=== PATIENT | male | born 1965 | race American Indian/Alaskan Native ===

== ENCOUNTER 2017-09-29 00:57 | Emergency (ER) | payer OTHER, MEDICAID ==
[2017-09-29 01:07] VITALS: BP 135/89
[2017-09-29] MEDS ORDERED: MOTRIN PO ONE (03:37)
[2017-09-29] MEDS ORDERED: MOTRIN ONE (03:38)
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
== END 2017-09-29 06:30 | disposition home or self-care (01) ==
LOC: ED 00:57
DX: S39.012A Strain of muscle, fascia and tendon of lower back, initial encounter (principal); S46.811A Strain of other muscles, fascia and tendons at shoulder and upper arm level, right arm, initial encounter; S46.812A Strain of other muscles, fascia and tendons at shoulder and upper arm level, left arm, initial encounter; J45.909 Unspecified asthma, uncomplicated; F43.10 Post-traumatic stress disorder, unspecified; F17.200 Nicotine dependence, unspecified, uncomplicated; V89.2XXA Person injured in unspecified motor-vehicle accident, traffic, initial encounter; Y93.89 Activity, other specified; Y92.89 Other specified places as the place of occurrence of the external cause; Y99.8 Other external cause status
CPT/HCPCS: 99282

== ENCOUNTER 2021-03-08 09:36 | Outpatient (CLI) | payer MEDICAID ==
--- NOTE | 2021-03-08 13:24 | Ultrasound Report ---
ULTRASOUND THYROID INDICATION / CLINICAL INFORMATION: CYSTIC THYROID NODULE. COMPARISON: None available. FINDINGS: RIGHT LOBE: Size (cm) = 7.9 x 2.6 x 3.5 cm. LEFT LOBE: Size (cm) = 5.8 x 2.0 x 1.6 cm. ISTHMUS: Thickness (cm) = 0.2 cm. APPEARANCE: Multinodular. SMALL NODULES < 1 cm: None. NODULES >= 1 cm or SUSPICIOUS FEATURES (up to 4): - NODULE # 1 - Location: Right Lower - Maximum Size (cm): 4.3 cm - Significant Change (>= 20% in 2 dim. & inc. >= 2mm): No prior study - Composition: Mixed cystic & solid = 1 point - Echogenicity: Hypoechoic = 2 points - Shape: [id number] = 0 points - Margin: Smooth = 0 points - Echogenic Foci: None = 0 points - Additional Echogenic Foci: None = 0 points - Additional Findings: None. - ACR TI-RADS Score / Category = 3 points / TI-RADS 3 - NODULE # 2 - Location: Right Mid - Maximum Size (cm): 1.2 cm - Significant Change (>= 20% in 2 dim. & inc. >= 2mm): No prior study - Composition: Solid = 2 points - Echogenicity: Hyperechoic or Isoechoic = 1 point - Shape: [id number]-[id number] = 0 points - Margin: Ill-defined = 0 points - Echogenic Foci: None = 0 points - Additional Echogenic Foci: None = 0 points - Additional Findings: None. - ACR TI-RADS Score / Category = 3 points / TI-RADS 3 - NODULE # 3 - Location: Left mid pole nodule is not well characterized. This lesion is difficult to evaluate wi thout cine imaging. It could be a spongiform nodule or a hypoechoic, solid nodule. The echogenic ole ons could be related to acoustic enhancement of the cystic orta. - NODULE # 4 - Location: Left lower - Maximum Size (cm): 1.6 cm - Significant Change (>= 20% in 2 dim. & inc. >= 2mm): No prior study - Composition: Solid = 2 points - Echogenicity: Hyperechoic or Isoechoic = 1 point - Shape: [id number] = 0 points - Margin: Smooth = 0 points - Echogenic Foci: None = 0 points - Additional Echogenic Foci: None = 0 points - Additional Findings: None. - ACR TI-RADS Score / Category = 3 points / TI-RADS 3 - No additional suspicious thyroid nodules. LYMPH NODES: No abnormal lymph nodes. PARATHYROID GLANDS: No abnormal parathyroid glands. ADDITIONAL FINDINGS: None. IMPRESSION: 1. Right lower thyroid nodule measures 4.3 cm and is TI-RADS Category 3. Recommend FNA. 2.Left lower thyroid nodule measures 2.2 cm is difficult to completely evaluate. Could be spongiform related to hypoechoic solid nodule. Recommend further characterization at the time of FNA. If this is a hypoechoic solid nodule then it would also be recommended to bipsy this nodule same day. 3.Right mid thyroid nodule measures 1.2 cm and is TI-RADS Category 3. No follow-up or biopsy required . 4. Left lower thyroid nodule measures 1.6 cm and is TI-RADS Category 3. Recommend follow-up ultrasoun d in one year. ACR TI-RADS Thyroid Nodule Recommendations TI-RADS 1 (0 pts) -- BENIGN. - No Fine Needle Aspirate biopsy (FNA) or follow-up. TI-RADS 2 (1-2 pts) -- NOT SUSPICIOUS. - No FNA or follow-up. TI-RADS 3 (3 pts) -- MILDLY SUSPICIOUS. - >= 2.5 cm: FNA. - 1.5-2.4 cm: Follow up at 1, 3, 5 years. - < 1.5 cm: No follow up. TI-RADS 4 (4-6 pts) -- MODERATELY SUSPICIOUS. - >= 1.5 cm: FNA. - 1.0-1.4 cm: Follow up at 1, 2, 3, 5 years. - < 1.0 cm: No follow up. TI-RADS 5 (7+ pts) -- HIGHLY SUSPICIOUS. - >= 1.0 cm: FNA. - 0.5-0.9 cm: Follow annually for 5 years. - 0.5 cm: No follow up. REFERENCE: ACR Thyroid Imaging, Reporting and Data System (TI-RADS): White Paper of the ACR TI-RADS C ommittee. J AM Ricardo Radiol 2017;14:587-595. NOTE: Nodules < 1 cm do not typically require follow-up or FNA unless there are suspicious features. NOTE: Nodule size maximum dimension determines whether a given lesion should be biopsied or followed. NOTE: If multiple nodules meet criteria for FNA, only the two (2) most suspicious nodules should be b iopsied. In addition, FNA of any suspicious cervical nodes should be biopsied. NOTE: Predominantly Cystic nodules and Spongiform nodules, composed predominantly (>50%) of small cys tic spaces, are considered benign (TI-RADS 1) regardless of other criteria. Scribed by: Neeru Escobedo RDMS, RVT Scribed: 03/08/2021 11:20 AM I have reviewed the images, agree with this report, and edited this report as needed. Signer Name: Joey Bergeron MD Signed: 03/08/2021 1:19 PM Workstation Name: [id number]
== END 2021-03-08 09:37 | disposition home or self-care (01) ==
LOC: US 09:36
PROVIDERS: ATTEND Internal Medicine
DX: E04.1 Nontoxic single thyroid nodule (principal)
CPT/HCPCS: 76536

== ENCOUNTER 2021-05-15 08:38 | Outpatient (CLI) | payer MEDICAID ==
--- NOTE | 2021-05-15 09:49 | XRay Report ---
LUMBAR SPINE 3 VIEWS INDICATION / CLINICAL INFORMATION: LOW BACK PAIN,UNSPECIFIED. COMPARISON: None available. FINDINGS: VERTEBRAE: No acute fracture. No significant malalignment. DISC SPACES / FACET JOINTS:Moderate degenerative changes, most prominent at L4-5 and L5-S1 levels. PARASPINAL SOFT TISSUES:No significant abnormality. ADDITIONAL FINDINGS: None. Signer Name: Ze Lambert MD Signed: 05/15/2021 9:44 AM Workstation Name: [id number]
[2021-05-15 09:58] LABS: Basophils # (Auto) 0.2 K/mm3 (0.0-0.1); Eosinophils # (Auto) 0.2 K/mm3 (0.0-0.4); Eosinophils % (Auto) 1.4 % (0.0-4.3); Hematocrit 39.7 % (35.5-45.6); Lymphocytes # (Auto) 4.3 K/mm3 (1.2-5.4); Lymphocytes % (Auto) 35.8 % (13.4-35.0); Mean Corpuscular HGB Conc 33 % (32-34); Mean Corpuscular Volume 99 fl (84-94); Monocytes # (Auto) 0.8 K/mm3 (0.0-0.8); Monocytes % (Auto) 6.4 % (0.0-7.3); Platelet Count 268 K/mm3 (140-440); Red Cell Distribution Width 14.8 % (13.2-15.2)
[2021-05-15 10:13] LABS: Alanine Aminotransferase 29 units/L (7-56); Albumin 4.4 g/dL (3.9-5); BUN/Creatinine Ratio 17; Blood Urea Nitrogen 15 mg/dL (9-20); Calcium 9.3 mg/dL (8.4-10.2); HDL Cholesterol 44 mg/dL (40-59); Hemolysis Index 5; LDL Cholesterol,Direct 124 mg/dL (50-130)
[2021-05-15 10:40] LABS: Bilirubin,Urine NEG (Negative); Blood,Urine SM (Negative); Color,Urine Yellow (Yellow); Mucus,Urine FEW /HPF; Protein,Urine <15 mg/dL mg/dL (Negative)
== END 2021-05-15 08:39 | disposition home or self-care (01) ==
LOC: XRAY 08:38
PROVIDERS: ATTEND Internal Medicine
DX: Z00.00 Encounter for general adult medical examination without abnormal findings (principal); M47.816 Spondylosis without myelopathy or radiculopathy, lumbar region; E66.01 Morbid (severe) obesity due to excess calories; M54.50 Low back pain, unspecified; R39.81 Functional urinary incontinence; R73.9 Hyperglycemia, unspecified; R53.83 Other fatigue; I10 Essential (primary) hypertension
CPT/HCPCS: 36415; 72100; 80053; 80061; 81001; 82306; 83036; 83655; 84153; 84443; 85025

== ENCOUNTER 2021-08-14 09:31 | Outpatient (CLI) | payer MEDICAID ==
[2021-08-14 10:25] LABS: Basophils # (Auto) 0.1 K/mm3 (0.0-0.1); Basophils % (Auto) 0.6 % (0.0-1.8); Eosinophils # (Auto) 0.2 K/mm3 (0.0-0.4); Eosinophils % (Auto) 1.4 % (0.0-4.3); Lymphocytes # (Auto) 4.5 K/mm3 (1.2-5.4); Lymphocytes % (Auto) 40.4 % (13.4-35.0); Mean Corpuscular HGB Conc 36 % (32-34); Mean Corpuscular Volume 98 fl (84-94); Monocytes # (Auto) 0.6 K/mm3 (0.0-0.8); Monocytes % (Auto) 4.9 % (0.0-7.3); Platelet Count 272 K/mm3 (140-440); Red Blood Count 3.78 M/mm3 (3.65-5.03); Red Cell Distribution Width 14.8 % (13.2-15.2)
[2021-08-14 10:26] LABS: Hematocrit 36.9 % (35.5-45.6); Hemoglobin 13.4 gm/dl (11.8-15.2)
== END 2021-08-14 09:32 | disposition home or self-care (01) ==
LOC: LAB 09:31
PROVIDERS: ATTEND Internal Medicine
DX: D72.829 Elevated white blood cell count, unspecified (principal)
CPT/HCPCS: 36415; 85025

== ENCOUNTER 2021-09-10 11:02 | Outpatient (CLI) | payer MEDICAID ==
[2021-09-10 11:43] LABS: Bilirubin,Urine NEG (Negative); Blood,Urine NEG (Negative); Color,Urine Yellow (Yellow); Mucus,Urine 2+ /HPF; Protein,Urine <15 mg/dL mg/dL (Negative)
== END 2021-09-10 11:03 | disposition home or self-care (01) ==
LOC: LAB 11:02
PROVIDERS: ATTEND Internal Medicine
DX: N39.0 Urinary tract infection, site not specified (principal)
CPT/HCPCS: 81001

== ENCOUNTER 2022-02-25 08:49 | Outpatient (CLI) | payer MEDICAID ==
[2022-02-25 09:18] LABS: Hematocrit 41.7 % (35.5-45.6); Hemoglobin 13.7 gm/dl (11.8-15.2); Mean Corpuscular HGB Conc 33 % (32-34); Mean Corpuscular Volume 99 fl (84-94); Platelet Count 291 K/mm3 (140-440); Red Blood Count 4.21 M/mm3 (3.65-5.03); Red Cell Distribution Width 14.2 % (13.2-15.2)
[2022-02-25 10:03] LABS: Basophils % (Manual) 0 % (0.0-1.8); Platelet Estimate Consistent w Auto; RBC Morphology Normal; Total Cells Counted 100
== END 2022-02-25 08:50 | disposition home or self-care (01) ==
LOC: LAB 08:49
PROVIDERS: ATTEND Internal Medicine
DX: D72.829 Elevated white blood cell count, unspecified (principal)
CPT/HCPCS: 36415; 85007; 85025